=== PATIENT | female | born 1950 ===

== ENCOUNTER 2018-05-21 13:19 | Outpatient (CLI) | payer MEDICARE, SELFPAY | END 2018-05-21 13:20 | disposition home or self-care (01) | LOC: C.USIC 13:19 | DX: K76.0 Fatty (change of) liver, not elsewhere classified (principal) ==

== ENCOUNTER 2018-06-14 06:28 | Day surgery (SDC) | payer MEDICARE, SELFPAY ==
[2018-06-14] MEDS ORDERED: Lactated Ringer's 500 ML IV ONE ×2 (08:05)
[2018-06-14] MEDS ORDERED: Propofol 10 mg/ml Inj (20 ML) ONE (08:20)
--- NOTE | 2018-06-14 08:23 | CP.SDSHP ---
Same Day Surgery H & P - History Proposed Procedure: colonoscopy Pre-Op Diagnosis: rect bleed - Previous Medical/Surgical History Endocrine/Metabolic: Thyroid Disease - Allergies Allergies: Allergies No Known Allergies Allergy (Verified 06/14/18 06:57) - Physical Exam Vital Signs: Vital Signs 06/14/18 06:50 Temperature 97.8 F Pulse Rate 72 Respiratory 16 Rate Blood Pressure 114/68 O2 Sat by Pulse 99 Oximetry Mental Status: Alert & Oriented x3 Neuro: WNL Heart: WNL Lungs: WNL GI: WNL - {Optional Preform as Required} Abdomen: WNL - Impression Impression: rect bleed Pt. Evaluated Today:Candidate for Anesthesia & Procedure: Yes - Date & Time Date: 06/14/18 Time: 08:23 Short Stay Discharge - Short Stay Discharge Admitting Diagnosis/Reason for Visit: RECTAL BLEEDING Disposition: HOME/ ROUTINE
[2018-06-14 09:05] VITALS: TEMP 97.9
[2018-06-14 09:06] VITALS: RESP 18
[2018-06-14 09:39] VITALS: O2SAT 99
[2018-06-14 10:15] VITALS: BP 110/67; PULSE 60
== END 2018-06-14 10:00 | disposition home or self-care (01) ==
LOC: C.ENDO 06:28
PROVIDERS: ATTEND Internal Medicine Gastroenterology
DX: K57.30 Diverticulosis of large intestine without perforation or abscess without bleeding (principal); K64.1 Second degree hemorrhoids; K62.5 Hemorrhage of anus and rectum; E03.9 Hypothyroidism, unspecified
CPT/HCPCS: 45380; 88305; J2704; J7120